=== PATIENT | female | born 1975 | race African-American/Black ===

== ENCOUNTER 2019-04-24 02:51 | Emergency (ER) | payer OTHER ==
[2019-04-24 03:01] VITALS: BP 134/93; BMI 39.9
[2019-04-24] MEDS ORDERED: ADIPEX-P37.5 MG PO (03:03)
[2019-04-24] MEDS ORDERED: TIROSINT13 MCG PO (03:03)
== END 2019-04-24 04:50 | disposition home or self-care (01) ==
LOC: D.ER 02:51
DX: S82.302A Unspecified fracture of lower end of left tibia, initial encounter for closed fracture (principal); W10.9XXA Fall (on) (from) unspecified stairs and steps, initial encounter; Y93.89 Activity, other specified